=== PATIENT | male | born 1960 | race Caucasian/White ===

== ENCOUNTER 2025-02-20 18:33 | Observation (INO) | payer BC, SELFPAY ==
[2025-02-20] VITALS (14 sets, daily range): BP systolic 102–150; BP diastolic 71–97; PULSE 60–66; BMI 23.2; BMI 23.0
[2025-02-20 12:10] LABS: Hematocrit 44.9 % (39.0-52.0); Hemoglobin 14.8 g/dL (13.0-18.0); Mean Corp Hgb Conc. 33.0 g/dL (33.0-37.0); Mean Corpuscular Volume 87.0 fL (80.0-94.0); Nucleated Red Blood Cells % 0 % (-); Platelet Count 236 10^3/uL (130-400); Red Cell Dist. Width 14.1 % (11.5-14.5)
[2025-02-20 12:24] LABS: ALT (SGPT) 18 U/L (0-50); AST (SGOT) 23 U/L (17-59); Albumin 4.3 g/dl (3.5-5.0); Alkaline Phosphatase 43 U/L (38-126); Blood Urea Nitrogen 16 mg/dl (9-20); Calcium 9.0 mg/dl (8.4-10.2); Carbon Dioxide 29 mmol/L (22-30); Chloride 103 mmol/L (98-107); Glucose 111 mg/dl (70-99); Potassium 4.8 mmol/L (3.5-5.1); Sodium 138 mmol/L (135-145); Total Protein 7.0 g/dl (6.3-8.2); eGFR > 60.00
[2025-02-20 12:35] LABS: Troponin I < 0.012 ng/ml
--- NOTE | 2025-02-20 13:27 | EDRN ---
Alessandro NÚÑEZ in room w/pt at this time.
--- NOTE | 2025-02-20 14:03 | EDRN ---
Addendum entered by Lacy Watkins RN 02/20/25 14:11:
Pt was walking in kitchen to coffee pot and suddenly felt dizzy then awoke on floor.
Original Note:
Pt states he was dizzy and it affected his gait then he awoke w/ head pain and continued dizziness on floor. Pt hit back of head, has very tiny cut to R side of head, and 4/10 head and posterior neck pain at 4/10. Pt is not on blood thinners though
did pass out. Pt awoke after falling backwards onto a tile floor.
--- NOTE | 2025-02-20 14:12 | ED.GENMED ---
History of Present Illness
<Apple Martell PA-C - Last Filed: 02/24/25 00:02>
General
Chief Complaint: Fainting/Passed Out
Time Seen by Provider: 02/20/25 13:21
History of Present Illness
History of Present Illness:
see MDM
Past History
<LUC Maria Last Filed: 02/24/25 00:02>
Past History
ED Past Medical History: Other (seasonal allergies)
ED Past Surgical History: None
Social History
Tobacco: Non-smoker
Personal:
Living: with family
Employment: Employed
Review of Systems
<LUC Maria Last Filed: 02/24/25 00:02>
Review of Systems
Allergies reviewed?: Yes
All Other Systems: Not applicable
Constitutional: Reports no symptoms; Denies fever, weight gain, fatigue or chills
Respiratory: Reports no symptoms; Denies cough or trouble breathing
Cardiac: Reports syncope; Denies chest pain, diaphoresis or palpitations
ABD/GI: Denies abdominal pain, nausea, vomiting or diarrhea
Neurological: Reports dizzy and headache; Denies weakness or numbness
Phy Exam
<LUC Maria Last Filed: 02/24/25 00:02>
Physical Exam
Physical Exam:
see MDM
Course
<LUC Maria Last Filed: 02/24/25 00:02>
Orders/Labs/Results
Orders:
Orders
02/20/25 11:45
Electrocardiogram (*1) Urgent
Reason for Study: Syncope
EKG- Treatment ONCE
02/20/25 12:02
Complete Blood Count/With Diff Urgent
Comprehensive Metabolic Panel Urgent
Troponin I Urgent
02/20/25 14:10
CT Cervical Spine W/o Iv Contr Urgent
Comment:
Reason For Exam: neck pain, syncope
CT Head W/o Iv Contrast Urgent
Comment:
Reason For Exam: headache, syncope
02/20/25 14:11
Orthostatic VS- Treatment ONCE
02/20/25 Dinner
Cholesterol Lowering
At Your Request: Full Participation
Does patient need a safe tray?: No
Reason for opting out of [employer] order writing: Provider Decision
Cholesterol Lowering: Sodium, 2 Gram
02/20/25 17:34
Admit/Transfer Patient As Directed
Co-Sign Provider:
Level of Care: Observation services
Assign to:: Telemetry
Physician / Group: htay
Diagnosis: syncope , valvular hear dz, traumatic scalp injury
Reason for Telemetry: Syncope
Date to Stop Telemetry: 02/22/25
Time to Stop Telemetry: 11:00
Expected length of stay greater than two midnights?: Yes
ELOS- Estimated Length of Stay in days: 2
I certify the patient meets the requirements for IP care: Yes
02/20/25 17:36
Code Status As Directed
Resuscitation Status: Full Code
02/20/25 19:45
0.9% Sodium Chloride 1000 ml [Nss] 1,000 ml IV 60 mls/hr
Acetaminophen [Tylenol] 650 mg PO Q4HPRN PRN
Bisacodyl [Dulcolax] 10 mg RECTAL [id number] PRN
Docusate W/Senna [Senokot-S] 1 tablet PO BIDPRN PRN
Polyethylene Glycol Powder [Miralax] 17 grams PO DAILYPRN PRN
02/20/25 19:45
Activity As Directed
Activity Level: With Assistance
Neurological Checks As Directed
Frequency: q4h
Pneumatic Compression Sleeves As Directed
Type: Knee high
Vital Signs As Directed
Frequency: Per unit guidelines
DX Deep Vein Thrombosis Video Routine
02/20/25 22:00
Famotidine [Pepcid] 40 mg PO HS
02/21/25 06:00
Echo 2D MMode Color/Doppler IN AM
Reason for Study: syncope
Comment: Bicuspid aortic valve with aortic valve calcification and mild to moderate
02/21/25 07:26
Basic Metabolic Panel IN AM
Complete Blood Count/No Diff IN AM
02/21/25 08:00
Pravastatin Sodium [Pravachol] 10 mg PO DAILY
02/22/25 11:00
DC Protocol for Telemetry ONCE
Abnormal Lab Results
02/20/25
12:02
Eosinophils % 6.9 H %
(0-6)
Glucose 111 H mg/dl
(70-99)
02/20/25 12:02
02/20/25 12:02
Vital Signs
Initial and Last Documented VS:
Initial Vital Signs
Temp Pulse Resp BP Pulse Ox
97.9 F 94 18 130/92 97
02/20/25 11:51 02/20/25 11:51 02/20/25 11:51 02/20/25 11:51 02/20/25 11:51
Last Documented Vital Signs
Temp Pulse Resp BP Pulse Ox
97.8 F 76 12 108/79 98
02/21/25 15:00 02/21/25 15:00 02/21/25 15:00 02/21/25 15:00 02/21/25 15:00
<Chan Sanchez MD - Last Filed: 02/24/25 19:09>
Orders/Labs/Results
Orders:
Orders
02/20/25 11:45
Electrocardiogram (*1) Urgent
Reason for Study: Syncope
EKG- Treatment ONCE
02/20/25 12:02
Complete Blood Count/With Diff Urgent
Comprehensive Metabolic Panel Urgent
Troponin I Urgent
02/20/25 14:10
CT Cervical Spine W/o Iv Contr Urgent
Comment:
Reason For Exam: neck pain, syncope
CT Head W/o Iv Contrast Urgent
Comment:
Reason For Exam: headache, syncope
02/20/25 14:11
Orthostatic VS- Treatment ONCE
02/20/25 Dinner
Cholesterol Lowering
At Your Request: Full Participation
Does patient need a safe tray?: No
Reason for opting out of [employer] order writing: Provider Decision
Cholesterol Lowering: Sodium, 2 Gram
02/20/25 17:34
Admit/Transfer Patient As Directed
Co-Sign Provider:
Level of Care: Observation services
Assign to:: Telemetry
Physician / Group: htay
Diagnosis: syncope , valvular hear dz, traumatic scalp injury
Reason for Telemetry: Syncope
Date to Stop Telemetry: 02/22/25
Time to Stop Telemetry: 11:00
Expected length of stay greater than two midnights?: Yes
ELOS- Estimated Length of Stay in days: 2
I certify the patient meets the requirements for IP care: Yes
02/20/25 17:36
Code Status As Directed
Resuscitation Status: Full Code
02/20/25 19:45
0.9% Sodium Chloride 1000 ml [Nss] 1,000 ml IV 60 mls/hr
Acetaminophen [Tylenol] 650 mg PO Q4HPRN PRN
Bisacodyl [Dulcolax] 10 mg RECTAL [id number] PRN
Docusate W/Senna [Senokot-S] 1 tablet PO BIDPRN PRN
Polyethylene Glycol Powder [Miralax] 17 grams PO DAILYPRN PRN
02/20/25 19:45
Activity As Directed
Activity Level: With Assistance
Neurological Checks As Directed
Frequency: q4h
Pneumatic Compression Sleeves As Directed
Type: Knee high
Vital Signs As Directed
Frequency: Per unit guidelines
DX Deep Vein Thrombosis Video Routine
02/20/25 22:00
Famotidine [Pepcid] 40 mg PO HS
02/21/25 06:00
Echo 2D MMode Color/Doppler IN AM
Reason for Study: syncope
Comment: Bicuspid aortic valve with aortic valve calcification and mild to moderate
02/21/25 07:26
Basic Metabolic Panel IN AM
Complete Blood Count/No Diff IN AM
02/21/25 08:00
Pravastatin Sodium [Pravachol] 10 mg PO DAILY
02/22/25 11:00
DC Protocol for Telemetry ONCE
Abnormal Lab Results
02/20/25
12:02
Eosinophils % 6.9 H %
(0-6)
Glucose 111 H mg/dl
(70-99)
02/20/25 12:02
02/20/25 12:02
Vital Signs
Initial and Last Documented VS:
Initial Vital Signs
Temp Pulse Resp BP Pulse Ox
97.9 F 94 18 130/92 97
02/20/25 11:51 02/20/25 11:51 02/20/25 11:51 02/20/25 11:51 02/20/25 11:51
Last Documented Vital Signs
Temp Pulse Resp BP Pulse Ox
97.8 F 76 12 108/79 98
02/21/25 15:00 02/21/25 15:00 02/21/25 15:00 02/21/25 15:00 02/21/25 15:00
<Apple Martell PA-C - Last Filed: 02/24/25 00:02>
MDM/Problems Addressed
Differential Diagnosis Includes:
see MDM
MDM/Problems Addressed:
Note:
CHIEF COMPLAINT(S)
Syncope with head trauma.
HISTORY OF PRESENT ILLNESS
The patient is a 64-year-old male with a known history of bicuspid aortic valve who presented with syncope leading to a fall and head trauma. Approximately one and a half hours prior to the visit, the patient became 'very, very dizzy' while walking
to get coffee and described feeling lightheaded before losing consciousness. he awoke on the ground after an unknown duration but was unresponsive for a short period as observed by hisfamily. he noted no chest pain, shortness of breath, or
palpitations before or after the event. he has experienced episodes of mild lightheadedness over the past two years but never to this extent.
pt drinks a lot of coffee, nicolas had 1 pot to himself this morning which isn't unsual.
The patients was present at the time of the fall and noted no seizure-like activity.. The patients jaw, head, and neck are also tender following this event, and there is noticeable swelling at the site of impact on the temporal
The patient has a history of aortic valve calcification, described as 'moderate stenosis,' and has annual echocardiograms to monitor his bicuspid aortic valve. The most recent echocardiogram indicated stable findings, last in 03/2024. The patient
reports having a academic affairs vice president and is awaiting his next echocardiogram scheduled for March 28.
no fever, chills, chest pain,blurry vision, weakness, abdomianl pain, diarrhea/dehydration
PAST MEDICAL AND SURIGICAL HISTORY
Bicuspid aortic valve with aortic valve calcification and mild to moderate stenosis.
Annual echocardiogram monitoring.
Ascending aorta dilation described by the patient as slightly more prominent than normal.
SOCIAL DETERMINANTS AFFECTING HEALTH
Chronic stress-related to financial constraints was not directly mentioned but implied through the conversation about medical coverage and scheduling.
SOCIAL HISTORY
The patient occasionally consumes alcohol, having wine the previous night. She has also resumed an active lifestyle, engaging in exercise, predominantly weightlifting, about one week prior to this event.
REVIEW OF SYSTEMS
.
PHYSICAL EXAM
GENERAL: Alert , in no apparent distress
HEAD: Right temporal hematoma 3 x 3 with a superficial abrasion
NECK: no midline tenderness, active ROM intact, mild right paraspinal muscle tenderness; mild pain with rotation
EYE: pupils equal and reactive, EOMs intact.
ENT: o/p clr, mmm. no hemotympanum
CARDIAC: Regular rate and rhythm, no edema, loud murmur
LUNGS: Clear breath sounds bilaterally, no acute respiratory distress, no wheezes/rales/rhonchi
ABDOMEN: Soft, without focal tenderness, no r/g, no cvat
NEUROLOGICAL: Alert and oriented, no focal neuro deficits, CN intact, 5/5 strength, sensation intact
SKIN: Warm and dry,
MUSCULOSKELETAL: No edema, well perfused.
PSYCH: Normal and appropriate interaction.
Nursing notes reviewed and vital signs reviewed.
PROBLEM LIST
Acute:
- Syncope leading to trauma.
- Occipital region contusion post-fall.
Chronic:
- Bicuspid aortic valve with mild to moderate stenosis.
- Ascending aorta dilation.
PLAN
- Proceed with head and neck computed tomography (CT) to assess for any trauma-related injuries.
- Contact the patients academic affairs vice president to discuss recent episodes and potentially expedite the echocardiogram.
- Consider cardiology consultation for further evaluation, particularly in regards to the patients bicuspid aortic valve and potential need for valve replacement or intervention.
- Monitor the patient overnight due to the uncertain etiology of syncope and ensure no further events.
- Evaluate hydration status and recommend increasing fluid intake.
- Discuss potential aortic issues with both cardiology and cardiac surgery teams if indicated by further findings.
DIFFERENTIAL DIAGNOSIS
The Differential Diagnosis includes, in no particular order and is not limited to:
1. Vasovagal syncope.
2. Cardiac arrhythmia.
3. Orthostatic hypotension.
4. Dehydration.
5. Hypoglycemia.
6. Aortic stenosis.
7. Bicuspid aortic valve dysfunction.
8. Aortic regurgitation.
9. Intracranial injury secondary to trauma.
10. Electrolyte imbalance.
64-year-old male with a history of bicuspid valve aortic, moderate aortic stenosis last seen on echo last year, mildly dilated aortic root at 4 cm presents after syncopal event today. Patient had an unknown provoked event, he suddenly did feel
lightheaded before he passed out but he did not have any obvious vagal stimulus, dehydration, orthostasis etc. He did drink about a pot of coffee before this happened which could be contributory however when he woke up he has moderate hematoma to
his right scalp as well as some soreness in his neck. He otherwise feels well, he has no chest pain and never had chest pain today. His EKGs were incomplete right bundle without ST changes. He has a negative Trope. Electrolytes are normal, he is
not anemic. Patient's orthostatics were negative. Patient was followed by a Acosta Marquez academic affairs vice president.
I reviewed his echo report on his phone I discussed the case with ED attending and we both felt that the patient best would be observed on the telemetry monitoring for any dysrhythmia, have a formal cardiology consult, likely repeat echo
Patient agreeable to staying. Is he CT of his head was negative
<Apple Martell PA-C - Last Filed: 02/24/25 00:02>
*Pulse Oximetry
SaO2: 98
Patient hypoxic: no (98)
*Critical Care Note
Total Time (30-74mins, 75-104mins- exclusive of procedures): Not Applicable
ED Attending Note
<Apple Martell PA-C - Last Filed: 02/24/25 00:02>
-
Portions of this chart may have been created with voice recognition software.� Occasional wrong word or��sound alike� substitutions may have occurred due to the inherent limitations of voice recognition software.
<Chan Sanchez MD - Last Filed: 02/24/25 19:09>
ED Attending Note
Patient seen and examined by attending physician: Yes
ED Attending Note:
Patient presents to ED secondary to unwitnessed syncopal episode at home this morning. Patient states that he was in the kitchen, and as he was walking to get another cup of coffee, experienced dizziness prior to passing out. Patient's spouse, who
was upstairs, came down immediately when she heard noise downstairs. Patient was on the floor with his eyes closed and appearing pale. He woke up on his own spontaneously and kept asking 'what happened'. Patient otherwise had no complaints.
Patient denies preceding chest pain or palpitations. Denies shortness of breath. Denies nausea or vomiting. Denies headache. Denies previous history of similar symptoms. Patient's medical history is significant for aortic valve stenosis,
currently being evaluated at [facility]. Of note, patient reportedly drinks at least 5 to 6 cups of coffee along with decaffeinated tea. In today, as he is home for the weekend, he admits to having had increased caffeine
consumption. Normally, patient states that he may have a glass of water during the whole day.
Physical Exam
General: no apparent distress, not acutely ill. afebrile
Head: hematoma/abrasion noted over right temporal area, without active bleeding. eomi
Neck: supple. normal range of motion
Heart: s1/s2 regular rate and rhythm. systolic ejection murmur
Lungs: no acute respiratory distress. clear bilaterally
Abdomen: normal bowel sounds. not tender.
Neuro: alert and oriented. no focal neurological deficits
Skin: no rash
Psychiatric: well kept. interactive and cooperative
Extremities: no edema. no calf tenderness.
History and exam concerning for syncope, likely secondary to vagal response from dehydration. However, in light of patient's underlying valve disease, difficulty other etiology, including symptomatic aortic stenosis versus arrhythmia. As such,
patient will be admitted for further evaluation and treatment.
Discharge Plan
Departure
Patient Disposition: Admit
Date of Disposition: 02/20/25
Time of Disposition: 16:45
Admit to: Telemetry
Presentation/result/management discussed w/ accepting MD/DO: Hospitalist
Condition: Fair
Covid-19: Not Applicable
Discharge Problem:
Syncope, Aortic stenosis
Interventions
Interventions:
*Risk Screen - Suicide Last Done: 02/20/25 21:18
*General Assessment Last Done: 02/20/25 11:53
*Neglect/Abuse Screening Last Done: 02/20/25 11:53
*ED- Fall Risk Assessment Last Done: 02/20/25 13:56
*ED COVID-19 Vaccine History Last Done: 02/20/25 11:53
*ED Influenza Vaccine History Last Done: 02/20/25 11:53
*Nursing Disposition Last Done: 02/20/25 19:34
ED- Cardiac Assessment Last Done: 02/20/25 13:56
ED- Neurological Assessment Last Done: 02/20/25 18:00
Discharge Date and Time
Discharge Date/Time: 02/20/25 19:37
--- NOTE | 2025-02-20 14:56 | EDRN ---
Dr. Sanchez in room w/pt at this time.
--- NOTE | 2025-02-20 16:52 | EDRN ---
clinical research tech [facility] in room w/ pt at this time.
--- NOTE | 2025-02-20 17:19 | HPS.HSE ---
Family Physician
-
Family Physician: * NONE
Chief Complaint
-
passed out , head injury
History of Present Illness
HPI�
64M HX mod , known bicuspid AoV, dilated 4cm Ao root ( P Cards @ [facility]) seen at ER:
Evaluation for syncope , fall and head trauma
- woke up usual state of health
- suddenly felt dizzy preceding to passed out
- Then remember he woke up on the floor after unknown duration - presumed he passed out
- report head pain
- no recent illness
- New Meds: taking testosterone since Mid January
Medical History
Past Medical History
Past Medical History: Reports Hypercholesterolemia and Valvular Disease (mod , knwon bicuspid AoV, dilated 4cm Ao root ( P Cards @ [facility]))
Past Surgical History: Reports Other
Social History
Tobacco: Non-smoker
Alcohol: None
Family History
Family History: Not pertinent
Allergies / Home Medications
Allergies reflects when Allergies were last updated in [employer].
Home Medications with original date entered in [employer]
Allergy/Medication List:
Allergies
Allergy/AdvReac Type Severity Reaction Status Date / Time
No Known Allergies Allergy Verified 02/20/25 11:52
Home Medications
Testosterone Powder 1kg 2 applic topical DAILY Hormonal Agent 02/20/25
famotidine 40 mg tablet (Pepcid) 40 mg PO HS Gastrointestinal Issue 02/20/25
pravastatin 10 mg tablet 10 mg PO DAILY High Cholesterol 02/20/25
Review of Systems
-
Constitutional: Reports No Symptoms
EENT: Reports No Symptoms
Respiratory: Reports No Symptoms
Cardiac: Reports Syncope
Abdomen/GI: Reports No Symptoms
: Reports No Symptoms
Musculoskeletal: Reports No Symptoms
Skin: Reports Other (Right temporal hematoma 3 x 3 with a superficial abrasion)
Neurological: Reports See HPI
Endocrine: Reports No Symptoms
Hematologic/Lymphatic: Reports No Symptoms
Psych: Reports No Symptoms
Physical Exam
Vital Signs
Vital Signs
Temp Pulse Resp BP Pulse Ox
97.9 F 70 18 122/94 98
02/20/25 11:51 02/20/25 17:00 02/20/25 17:00 02/20/25 17:00 02/20/25 17:00
Physical Exam
General: Well Developed, Well Nourished and No Apparent Distress
HEENT: NormoCephalic, Moist mucous membranes, Atraumatic and Other (Right temporal hematoma 3 x 3 with a superficial abrasion)
Respiratory: Clear
Cardiac: S1/S2 and Regular Rhythm; No Murmur or Rub
GI: Soft, Non Tender, Non Distended and Normal Bowel Sounds; No Organomegaly
Rectal: Deferred by Provider
Musculoskeletal: No Clubbing, No Cyanosis and No Edema
Skin: No Rash
Neuro: AO x 3, Nonfocal/grossly intact and Cranial Nerves Intact; No Slurred Speech, Facial Droop or Tremors
Psych: Calm
Laboratory Results
-
02/20/25 12:02
02/20/25 12:02
Laboratory Results
Total Bilirubin 0.9 mg/dl (0.2-1.3) 02/20/25 12:02
AST 23 U/L (17-59) 02/20/25 12:02
ALT 18 U/L (0-50) 02/20/25 12:02
Alkaline Phosphatase 43 U/L (38-126) 02/20/25 12:02
Troponin I < 0.012 ng/ml 02/20/25 12:02
Data Reviewed
-
CT Scan: Report Reviewed by me
Lab Data: Labs Reviewed by me
Impression/Plan
-
Vital Signs
Temp Pulse Resp BP Pulse Ox
97.9 F 70 18 122/94 98
02/20/25 11:51 02/20/25 17:00 02/20/25 17:00 02/20/25 17:00 02/20/25 17:00
02/20/25
12:02
WBC 5.3
Hgb 14.8
Plt Count 236
Potassium 4.8
BUN 16
Creatinine 0.9
eGFR > 60.00
Troponin I < 0.012
EKG
NORMAL SINUS RHYTHM
INCOMPLETE RIGHT BUNDLE BRANCH BLOCK
BORDERLINE ECG
NO PREVIOUS ECGS AVAILABLE
Confirmed by Margot MCKINNEY ERIC ([id number]) on 02/20/2025 3:42:41 [address]
HCT
No acute intracranial abnormality noted.
Cx spine CT
- No evidence of acute osseous injury of the cervical spine.
- Multilevel degenerative disc disease.
- Mild reversal of the normal cervical spinal lordosis. This can be seen with muscular spasm.
NO PRIOR hospitalist admission:
ASSESSMENT & PLAN
Syncope - suspect cardiac valvular origin vs. vasovagal origin
- associated traumatic scalp laceration
- to check ortho VSS
- empiric IV NS @ 60 x 1 L
- NEG HCT for acute process
- EKG with NSR
- ECHO
- laboratory monitor
- Fall precaution
- [facility] Card consult
Bicuspid aortic valve with aortic valve calcification and mild to moderate stenosis.
Annual echocardiogram monitoring.
Ascending aorta dilation described by the patient as slightly more prominent than normal.
- ECHO in AM
DVT Px: SCD
Full code
OBS TLM
--- NOTE | 2025-02-20 17:28 | EDRN ---
Daughter left to get pt food. Alessandro NÚÑEZ said pt can eat.
--- NOTE | 2025-02-20 17:40 | EDRN ---
Dr. Chapman in room w/ pt at this time.
--- NOTE | 2025-02-20 18:17 | EDRN ---
Pt eating food brought in by his daughter at this time.
[2025-02-20] MEDS: NSS 1000 IV (20:36)
[2025-02-20] MEDS: TYLENOL 650 MG PO (20:45)
[2025-02-20] MEDS: PEPCID 40 MG PO (21:14)
[2025-02-21 03:35] VITALS: BP 118/80
[2025-02-21 07:00] VITALS: BP 123/83
[2025-02-21 07:48] LABS: Hematocrit 42.8 % (39.0-52.0); Hemoglobin 14.1 g/dL (13.0-18.0); Mean Corp Hgb Conc. 32.9 g/dL (33.0-37.0); Mean Corpuscular Volume 88.8 fL (80.0-94.0); Platelet Count 210 10^3/uL (130-400); Red Cell Dist. Width 14.1 % (11.5-14.5)
[2025-02-21] MEDS: PRAVACHOL 10 MG PO (08:04)
[2025-02-21] MEDS: TYLENOL 650 MG PO (08:08)
[2025-02-21 08:20] LABS: Blood Urea Nitrogen 12 mg/dl (9-20); Calcium 8.9 mg/dl (8.4-10.2); Carbon Dioxide 27 mmol/L (22-30); Chloride 106 mmol/L (98-107); Estimated Creatinine Clearance 93 ml/min; Glucose 91 mg/dl (70-99); Potassium 4.3 mmol/L (3.5-5.1); Sodium 136 mmol/L (135-145); eGFR > 60.00
[2025-02-21 11:00] VITALS: BP 128/81
[2025-02-21 11:24] VITALS: BP 127/85; BP 128/81; BP 134/88; PULSE 60; PULSE 67; PULSE 70
--- NOTE | 2025-02-21 13:17 | W.PN.HOSP.TC ---
Addendum entered and electronically signed by Ceferino Ramirez DO 02/21/25 16:00:
Spoke with cardiology, okay to discharge today. Outpatient follow-up with his e learning designer.
Appears that the syncope was vasovagal in nature.
Original Note:
Today's Communication/Plan
-
Follow-up echo
Cardiology consult
Assessment / Plan
Assessment / Plan
Gen-AAOx3, NAD
HEENT-NC, AT, anicteric, clear oral mm
Neck-supple
CV-reg, systolic M, +S1/S2
Lungs-clear B/L
Abd-soft, NT, ND
Ext-no edema
Musculoskeletal-no cyanosis, clubbing
Skin-warm and dry
Neuro-grossly non-focal
Psych-calm, cooperative
Syncope -possibly related to aortic stenosis versus vasovagal. Did feel lightheaded prior to onset of symptoms. Echocardiac completed, report pending.
CT head negative. CT cervical spine negative. Multilevel degenerative disc disease. Did have minor scalp laceration.
No major events noted on telemetry.
Orthostatic vitals negative.
Consult cardiology.
Aortic stenosis/bicuspid aortic valve/dilated aortic root -followed by [place] cardiology.
Full code
Anticipated Discharge: Within 24 hours
Subjective/Interval History
-
Date of Service: February 21, 2025
Patient seen and examined. No complaints.
Objective Data
-
Labs:
Laboratory Results
02/21/25
07:26
WBC 5.2
Hgb 14.1
Hct 42.8
Plt Count 210
Sodium 136
Potassium 4.3
Chloride 106
Carbon Dioxide 27
BUN 12
Creatinine 0.8
Glucose 91
Calcium 8.9
Vital Signs:
Vital Signs
Temp Pulse Resp BP Pulse Ox
97.5 F 60 12 128/81 98
02/21/25 11:00 02/21/25 11:00 02/21/25 11:00 02/21/25 11:00 02/21/25 11:48
Review of Systems
-
History Source: Patient
All other systems: Reviewed and negative
--- NOTE | 2025-02-21 14:40 | CON.CAR ---
Addendum entered and electronically signed by Monster Waldron MD 02/21/25 17:27:
I saw and examined the patient.
The TIN STACKER or PA's note was reviewed and I agree with the note.
Comment: General: Well developed, well nourished in NAD.
Neck: Supple, no JVD, HJR, carotids +2 B/L, no bruits bilaterally.
Heart: Non displaced PMI, RRR, 2/6 basal systolic murmur, No S3, S4, no rubs.
Lungs: Clear to auscultation bilaterally, no wheeze, rhonchi, rubs bilaterally,
normal expiratory phase.
Abdomen: Normal bowel sounds, soft, non-tender, non-distended.
Extremities: No clubbing, cyanosis or edema bilaterally.
Neuro: Grossly nonfocal, awake, alert and oriented x3.
Giancarlo has a history of bicuspid aortic valve with moderate aortic stenosis. He is seen after syncopal episode. He became lightheaded and passed out. He was noted to be very pale and diaphoretic by his . Cardiology is consulted because of
aortic stenosis.
It is felt that his syncope was likely vasovagal in the setting of possible dehydration with alcohol and excessive caffeine intake. Echocardiogram is stable. Stable cardiology status for discharge. He will follow-up with cardiology in [place]
area. Discussed with patient and in detail. Discussed with primary service
Original Note:
Consultation
Consultation Request
Date/Time Consultation Requested: 02/21/2025
Date/Time Consultation Performed: 02/21/2025
Requesting Provider: Dr. Ramirez
Performing Provider: Dr. Waldron
Reason for Consultation: Syncope, bicuspid aortic stenosis
Medical History
-
History of Present Illness:
Patient came to the ER with an episode of syncope at home yesterday and cardiology is now consulted for history of bicuspid aortic valve and moderate . Patient says that he awoke in his usual state of health yesterday and was just starting to
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 Patient was in the kitchen when he got these feelings and he grabbed onto the kitchen counter
and the next thing he recalls is waking up on his back on the kitchen floor with his standing over him. Patient fell backwards and hit the back of his head and was disoriented and was brought to the ER. Patient denies any previous history of
syncope. No evidence of ANIVAL and orthostatic vital signs were negative. Patient has been on telemetry since admission and no evidence of arrhythmia or pause. Patient reports that he drinks about 1 glass of wine a night and that most nights of the
week, he recently switched from bourbon in the form of a [place] a night to the 1 glass of wine a night. He tends not to drink a lot of water or juice. 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
without feeling lightheaded or dizzy. Patient was diagnosed with a bicuspid aortic valve a few years ago when his PCP heard a murmur and referred him to cardiology. He was found to have a bicuspid aortic valve and there was also evidence of
moderate , patient was then found to have a dilated aortic root and on his most recent CTA of the chest on 10/19/2024 he was stable at 4 cm.
PMH:
Bicuspid aortic valve
Moderate peak/mean 50/30 mmHg by echo 03/2024 and stable with peak/mean 48/25 mmHg by echo 02/21/2025
Dilated aortic root 4 cm by CTA of the chest 10/19/2024
Hyperlipidemia
Past Medical History
Past Medical History: Other (In HPI)
Past Surgical History: None
Social History
Tobacco: Non-Smoker
Alcohol: Daily (1 glass of wine a day)
Drug: None
Personal:
Living: With Family
Employment: Employed
Family History
Family History: Other (Family history of bicuspid aortic valve disease)
Allergies / Home Medications
Allergy/AdvReac Type Severity Reaction Status Date / Time
No Known Allergies Allergy Verified 02/20/25 11:52
�Medication �Instructions �Recorded �Confirmed �Type
Testosterone Powder 1kg 2 applic topical DAILY Hormonal 02/20/25 02/20/25 History
Agent
famotidine 40 mg tablet (Pepcid) 40 mg PO HS Gastrointestinal Issue 02/20/25 02/20/25 History
pravastatin 10 mg tablet 10 mg PO DAILY High Cholesterol 02/20/25 02/20/25 History
Review of Systems
-
History Source: Patient
All other systems: Negative unless noted
Physical Exam
Vital Signs
Temp Pulse Resp BP Pulse Ox
97.5 F 60 12 128/81 98
02/21/25 11:00 02/21/25 11:00 02/21/25 11:00 02/21/25 11:00 02/21/25 11:48
GEN: NAD, AAO x 3
HEENT: EOMI, MMM
LUNGS: RA. CTA B/L, no wheeze
CV: SR on telemetry. Reg, S1/S2, 2/6 syst LSB.
ABD: ND
EXT: No edema B/L LE
NEURO: Gross non-focal
SKIN: No rash
Lab Results
02/21/25 07:26
02/21/25 07:26
Troponin I < 0.012 ng/ml 02/20/25 12:02
Impression / Plan
-
PCP: Acosta Marquez
Cardiology: Dr. Thiago Strickland at [facility] [place]
Impression:
Admitted with syncope 02/20/2025
Syncope 02/20/2025
Bicuspid aortic valve
Moderate peak/mean 50/30 mmHg by echo 03/2024 and stable with peak/mean 48/25 mmHg by echo 02/21/2025
Dilated aortic root 4 cm by CTA of the chest 10/19/2024
Hyperlipidemia
Echo 03/2024: [facility] [place] study, preserved EF, bicuspid aortic valve, moderate peak/mean 50/30 mmHg and KAYLA 1.5 cm SQ
Echo 02/21/2025: EF 55 to 60%, normal RV size and function, bicuspid aortic valve with moderate peak/mean 48/25 mmHg, mild aortic regurgitation, trace MR, no pericardial effusion
Plan:
-Patient came to the ER with an episode of syncope at home yesterday and cardiology is now consulted for history of bicuspid aortic valve and moderate . Patient says that he awoke in his usual state of health yesterday and was just starting to
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 Patient was in the kitchen when he got these feelings and he grabbed onto the kitchen counter
and the next thing he recalls is waking up on his back on the kitchen floor with his standing over him. Patient fell backwards and hit the back of his head and was disoriented and was brought to the ER. Patient denies any previous history of
syncope. No evidence of ANIVAL and orthostatic vital signs were negative. Patient has been on telemetry since admission and no evidence of arrhythmia or pause. Patient reports that he drinks about 1 glass of wine a night and that most nights of the
week, he recently switched from bourbon in the form of a [place] a night to the 1 glass of wine a night. He tends not to drink a lot of water or juice. 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
without feeling lightheaded or dizzy. Patient was diagnosed with a bicuspid aortic valve a few years ago when his PCP heard a murmur and referred him to cardiology. He was found to have a bicuspid aortic valve and there was also evidence of
moderate , patient was then found to have a dilated aortic root and on his most recent CTA of the chest on 10/19/2024 he was stable at 4 cm.
-ECG reviewed by me is SR without acute ST changes
-Telemetry reviewed by me thus far and no evidence of arrhythmia or pauses
-Patient was able to access his patient portal and allowed me to view his most recent CTA of the chest and echo reports and I was able to compare this with his current echo, gradients are stable and EF preserved.
-Patient is negative by orthostatic VS.
-Reviewed with patient that this was likely vasovagal/neurocardiogenic syncope episode. We talked about the pathophysiology of neurocardiogenic syncope and efforts he can take to reduce this risk. We talked about reducing caffeine and alcohol
intake and increasing water intake. We talked about avoiding prolonged standing and taking time with changes in position.
-No concerning change with cardiac workup and patient can be discharged home to follow-up with his primary smeller.
[2025-02-21 15:00] VITALS: BP 108/79
--- NOTE | 2025-02-21 16:03 | W.DS.TRANS ---
DC Summary - [facility]
-
Discharge Instructions:
Discharge Diagnosis/Procedures Vasovagal syncope
Diet Low Cholesterol,Low Fat
Activity As tolerated
Driving Restrictions As prior to admission
Bathing Restrictions None
Instructions:
Stand-Alone Forms:
Changes to Home Medications: No
Discharge Medications:
DC Medications w/original date entered in [employer]
Testosterone Powder 1kg 2 applic topical DAILY Hormonal Agent 02/20/25
famotidine 40 mg tablet (Pepcid) 40 mg PO HS Gastrointestinal Issue 02/20/25
pravastatin 10 mg tablet 10 mg PO DAILY High Cholesterol 02/20/25
Home Medication Changes
Pending Results: No
[2025-02-21] MEDS: NSS IV (16:22)
[2025-02-21] MEDS: FLUZONE (6 mos+) 2025-2026 FORMULA 0.5 ML IM (16:25)
--- NOTE | 2025-02-21 17:56 | CM ---
Addendum entered by Phuong Romero 02/21/25 18:42:
Pt lives in 2 story home with his . Ther are 3 steps to the entrance of the home and 13 inside the home. Full BR is on the 2nd floor. INdependent with ADLs and IADLs. No hx of HH, SNF,DME or home O2. No insecurities identified. Confirmed that
he has a new PCP but has not had the initial visit with him yet. Confirmed RX, insurance and drug coverage.
PCP- None at this time
Rx: [facility].
Original Note:
Pt discharged to home with no needs. transported pt home
== END 2025-02-21 16:38 | disposition home or self-care (01) ==
LOC: 4 EAST ACU 18:33
PROVIDERS: Emergency Medicine; ADMITTING PHYSICIAN Internal Medicine; ATTENDING PHYSICIAN Hospitalist; CONSULT PHYSICIAN Internal Medicine Cardiovascular Disease; EMERGENCY PHYSICIAN Emergency Medicine
DX: R55 Syncope and collapse (principal); I35.0 Nonrheumatic aortic (valve) stenosis; M54.2 Cervicalgia; Q23.81 Bicuspid aortic valve; I45.10 Unspecified right bundle-branch block; I77.810 Thoracic aortic ectasia; S01.01XA Laceration without foreign body of scalp, initial encounter; W18.39XA Other fall on same level, initial encounter; Y93.01 Activity, walking, marching and hiking; Y92.000 Kitchen of unspecified non-institutional (private) residence as the place of occurrence of the external cause; Z59.869 Financial insecurity, unspecified; Z79.890 Hormone replacement therapy; E78.00 Pure hypercholesterolemia, unspecified; Z79.899 Other long term (current) drug therapy
CPT/HCPCS: 70450; 72125; 80048; 80053; 84484; 85025; 85027; 90656; 93005; 93306; 99285; G0008; G0378